=== PATIENT | female | born 1985 | race Caucasian/White ===

== ENCOUNTER → 2018-02-16 13:00 | Outpatient (CLI) | payer OTHER, SELFPAY ==
[2018-03-03 17:00] VITALS: BMI 25.7
== END ==
PROVIDERS: PCP Family Medicine
DX: Z23 Encounter for immunization (principal)
CPT/HCPCS: 90471; 90686

== ENCOUNTER 2018-03-03 13:27 | Day surgery (SDC) | payer OTHER, SELFPAY ==
[2018-03-02 08:02] VITALS: BMI 25.2
[2018-03-03] VITALS (10 sets, daily range): BP systolic 97–132; BP diastolic 48–80; PULSE 61–87; RESP 16–19; TEMP 36.2–36.9; O2SAT 96–99; BMI 25.7
--- NOTE | 2018-03-03 | PATH_ITS ---
[facility] Accession Number: [id number] . 01 Material submitted: . UTERUS AND RIGHT OVARY . 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 Multiple serous cysts (ovary). Multiple follicular cysts, ovary. Hemorrhagic corpus luteum, ovary. MRV/03/05/2018 . 02 Electronically signed: . Kris Rosario MD, Pathologist NPI- [id number] . 01 Gross description: . Received in formalin, labeled uterus and right ovary, is a fragmented uterus (40 grams, 6.2 x 5.0 x 3.5 cm in aggregate) and an ovary (4.8 x 2.8 x 1.5 cm). The second ovary, fallopian tubes and cervix are absent. The specimen cannot be oriented and the endometrium and myometrium cannot be grossly measured. The parenchyma is avitia and unremarkable. The serosa is pale avitia smooth and shiny. The ovary has a avitia-yellow dark maroon solid cystic parenchyma with corpus albicans and corpus luteum identified. The cavities (0.1 cm-1.3 cm) contain clear colorless fluid. Section code: (A1-A3) uterine parenchyma, technical sales representative; (A4-A5) ovary, technical sales representative serial sections. ([id number]) /[facility] . 02 Pathologist provided ICD-10: N93.9 . 02 CPT . 931074 Performed at: 01 [facility] [address] [id number] MD Omkar Hercules MD Phone: [phone] Performed at: 02 [facility] [address] [place] [id number] MD Tex Douglas MD Phone: [phone]
--- NOTE | 2018-03-03 13:57 | PM.PREOP ---
Pre-operative Note Interval Note Pre-op Check: Yes History & Physical exam performed today by Physician Changes: No
--- NOTE | 2018-03-03 14:00 | P.HPOB_ITS ---
History of Present Illness Reason for admission: vaginal bleeding Narrative: Mary Foster is a 32 year old female with menorrhagia and recurring right lower quadrant pain [facility] Medical History Chronic back pain (Acute) Environmental allergies (Acute) Fibroids (Acute) Hay fever (Acute) History of bronchitis (Acute) IBS (irritable bowel syndrome) (Acute) Ovarian cyst (Acute) Surgical History Hx of thumb surgery (Acute) Status post LASIK surgery Status post delivery Status post tubal ligation Family History Grandfather Heart disease Hypertension High cholesterol Grandfather Heart disease Hypertension High cholesterol Grandmother Mental health problem Social History household members: spouse and children Smoking Status: Never smoker alcohol intake: current Meds Home Medications Medication Instructions Recorded Confirmed Type eszopiclone [Lunesta] 1 mg PO HSP PRN #30 tab 01/24/17 03/03/18 Rx albuterol sulfate [Ventolin HFA] 2 puff INH Q4-6H #1 ea 06/02/17 03/03/18 Rx Allergies Allergy/AdvReac Type Severity Reaction Status Date / Time Penicillins [PENICILLINS] Allergy Severe Swelling Verified 03/03/18 13:43 of Lip/Tongue/Throat hydrocodone AdvReac Intermediate itching Verified 03/03/18 13:43 Review of Systems Review of Systems Patient has heavy bleeding. She is recurring right ovarian cysts and pain. All systems reviewed & are unremarkable except as noted in HPI and below Exam Narrative Exam Narrative: HEENT exam within normal limits. Lungs are clear to auscultation percussion. Heart is regular rate and rhythm no S3-S4 or murmurs. Abdomen is soft, nontender. Normal external genitalia, vagina, cervix. Uterus is minimally enlarged, nontender. No adnexal masses or tenderness. Extremities without edema and nontender. Assessment & Plan (1) Menorrhagia with regular cycle: Current visit: Yes Status: Acute (2) Ovarian cyst: Current visit: Yes Status: Acute Plan: Assessment/Plan Narrative: Patient with menorrhagia and recurring right ovarian cyst requesting laparoscopic supracervical hysterectomy with right oophorectomy. Consent form was reviewed with the patient, risks and benefits discussed, consent form was signed and a copy offered to the patient on 03/02/2018.
[2018-03-03] MEDS: LACTATED RINGERS 1,000 ML 42 ML IV (14:01)
[2018-03-03] MEDS: ALBUTEROL 2.5 MG/3 ML NEB (ADULT) INH (14:03)
[2018-03-03] MEDS: CLINDAMYCIN 900 MG/50 ML PIGGYBACK 50 MG IV (14:30)
--- NOTE | 2018-03-03 15:06 | SUR.OPER ---
Lithotomy on padded OR bed. [place]ooba Pad Positioner under torso. Head on pillow, arms padded and tucked at sides. Legs secured in padded yellow fins stirrups.
[2018-03-03] MEDS: BUPIVACAINE 0.5% W/ EPI (PF) VIAL 30 ML INJ (15:24)
--- NOTE | 2018-03-03 16:33 | P.OP_ITS ---
Operative Date/Time/Diagnoses Date of procedure: 03/03/18 Time of procedure: 16:30 Pre-op diagnosis: Menorrhagia with right lower quadrant pain and recurring ovarian cysts Post-op diagnosis: same Procedure & Clinicians Procedure: Laparoscopic supracervical hysterectomy, right oophorectomy Same procedure as scheduled: Yes Indications: Menorrhagia and recurring right ovarian cysts with pain Surgeon: Farzaneh Mcbride Curbstone Setter: Nicole Cruz Click Yes if Unassisted: No Anesthesia Type: General Operative Notes Findings: Uterus with a fibroid, status post removal of fallopian tubes, right ovarian cyst. No endometriosis. The scarring at her incision with the bladder. No internal hernias. Normal bowel surface and liver edge. Closure Type: primary Specimen(s): other (Uterus above the level of the bladder and right ovary) Applied: catheter Estimated Blood Loss (mL): 50 Blood products transfused: none Procedure in detail: Patient is brought to the operating room where she underwent general anesthesia and placed in [facility] stirps. She was prepped and draped in the usual sterile fashion. A check list was reviewed with the staff in the room prior to beginning of the case. Patient had pulsatile stockings in place and functional. 900 mg of clindamycin were in prior to beginning of the case.. A Shafer catheter was placed. A single-tooth tenaculum was placed on the anterior lip of the cervix and the cervix dilated to a #6 Hegar dilator. The uterine manipulator was placed through the cervix into the uterus with the balloon inflated with 3 mL of air. The area of the umbilical incision and the 5 mm right and left lower quadrant incisions were injected with Marcaine. An incision was made with scalpel. The verries needle was placed into the abdomen and confirmed in the appropriate place with withdrawal on a syringe and then free flow of fluid down through the needle. The abdomen was insufflated with CO2. The needle was removed and a 5 mm trocar placed without difficulty. There did not appear to be any damage is placement of the trocar. The right and left lower quadrant incisions were made with the scalpel and the trochars placed without damage to internal structures. The PK forceps were used to cauterize the infundibulopelvic ligament on the right side. Followed by the round ligaments on both sides. Sequential bites were taken down the broad ligaments. The uterine arteries were cauterized. An incision was made above the level bladder pushing the bladder away from the cervix. The WAGNER loop was placed around the uterus and the uterus was amputated above the level of the bladder. Bleeding was controlled with the PK forceps. The PK forceps were used to cauterize in the endocervical canal. A supracervical incision was made and an 11 mm port placed. A 15 mm Endo Catch bag was placed in the abdomen. The uterus, tubes and ovaries were placed in the bag and brought up through the suprapubic port site. The Efrain O was placed. The uterus was hand morselized. The abdomen was reinsufflated and adequate hemostasis was noted. The trochars were removed and the CO2 allowed escape from the abdomen. The fascia layer of the suprapubic site was repaired with 0 Polysorb suture. Skin was closed with 4-0 Monocryl suture at the suprapubic site and the other 3 sites. The patient went to recovery room in good condition. Counts of instruments and sponges were correct. Complications: none Condition: stable Disposition: Acute Care Plan for aftercare: Routine post hysterectomy
[2018-03-03] MEDS: OXYCODONE/ACETAMINOPHEN 5/325 TABLET 2 TAB PO ×2 (17:26→20:55)
[2018-03-03] MEDS: LACTATED RINGERS 1,000 ML 100 ML IV (18:27)
[2018-03-03] MEDS: KETOROLAC 30 MG/ML VIAL IV (18:28)
[2018-03-03] MEDS: DOCUSATE 250 MG CAPSULE PO (22:00)
--- NOTE | 2018-03-03 23:18 | PC.NURSE ---
1700- pt arived to room 219 from PACU via bed. A/O x3, 99%RA, LS clear, does use albuterol inhaler for Hx Bronchitis. 4 lap sites to ABD, steri strips, bandaids, CDI. Shafer patent and draining clear yellow urine. Tolerating reg diet. PP/BT/CMS++. L hand LR @ 100. Percocet 1 tab, and Ketorolac 30mg IVP effective for pain. Call light in reach and bed alarm on for safety.
[2018-03-04] MEDS: KETOROLAC 30 MG/ML VIAL IV ×2 (00:10→05:40)
[2018-03-04 00:34] VITALS: BP 91/51; PULSE 78; RESP 16; TEMP 36.2; O2SAT 96
[2018-03-04] MEDS: OXYCODONE/ACETAMINOPHEN 5/325 TABLET 2 TAB PO ×2 (01:22→08:54)
[2018-03-04] MEDS: LACTATED RINGERS 1,000 ML 100 ML IV (03:51)
[2018-03-04 06:29] LABS: Add Manual Diff / Slide Review NO; Hematocrit 38.4 % (36-46); Hemoglobin 13.1 g/dL (12.0-16.0); Lymphocytes Percent Auto 5.9 % (25-40); Mean Corpuscular HGB Conc 34.2 % (30-36); Mean Corpuscular Hemoglobin 31.6 PG (26-34); Mean Corpuscular Volume 92.4 fL (80-100); Neutrophils Absolute Auto 12300 /uL (3000-5900); Neutrophils Percent Auto 91.1 % (50-75); Platelet Count 183 X10^3/uL (150-400); Red Blood Cell Count 4.15 X10^6/uL (4.0-5.2); Red Cell Distribution Width 11.7 % (11.6-14.8); White Blood Cell Count 13.5 X10^3/uL (4.5-11.0)
[2018-03-04 06:45] VITALS: BP 116/51; PULSE 71; RESP 16; TEMP 36.9; O2SAT 97
--- NOTE | 2018-03-04 06:57 | PM.DS.1 ---
History of Present Illness Date Patient Seen: 03/04/18 Time Patient Seen: 06:57 Chief complaint: *OPB*[id number] lsch oophorectomy Narrative: Patient came in for laparoscopic supracervical hysterectomy right oophorectomy for menorrhagia, right lower quadrant pain, recurrent ovarian cysts Discharge Providers Primary care physician: Prudence Delgado DO Consults: 03/03/18 17:29 Consult to Respiratory Therapy Evaluate & Treat Comment: Physician Instructions: Evaluate and treat Discharge provider: Farzaneh Mcbride MD Discharge Date: 03/04/18 Summary Discharge Diagnosis: Menorrhagia and right lower quadrant pain with recurring ovarian cyst status post laparoscopic supracervical hysterectomy with right oophorectomy. Hospital Course: Patient was admitted for laparoscopic supracervical hysterectomy and right oophorectomy. Her surgery went very well. She was ambulatory. Urinating well. Pain was under control. She was discharged home to follow up in 3 weeks. Status at Discharge Functional status at discharge: independent ambulation Overall status at discharge: patient is progressing back to baseline Time Spent with Patient Less than 30 minutes Exam Vital Signs (past 8 hours): - 03/04/18 00:34 03/04/18 06:45 Temperature 97.2 F L 98.4 F Pulse Rate 78 71 Respiratory Rate 16 16 Blood Pressure 91/51 L 116/51 L Pulse Oximetry 96 97 Oxygen Delivery Method Room Air Narrative Exam Narrative: Abdomen was soft, appropriately tender. Incisions were clean, dry, intact. No vaginal bleeding. Extremities without edema and nontender. Objective Labs Result Diagrams: 03/04/18 05:40 Labs: Laboratory Results - last 24 hr 03/04/18 05:40 WBC 13.5 H RBC 4.15 Hgb 13.1 Hct 38.4 MCV 92.4 MCH 31.6 MCHC 34.2 RDW 11.7 Plt Count 183 Neut % (Auto) 91.1 H Lymph % (Auto) 5.9 L [place] % (Auto) 3.0 Eos % (Auto) 0.0 L Baso % (Auto) 0.0 Neut # (Auto) 80612 H Discharge Plan Discharge Plan Patient Disposition: Home Discharge Med Rec/Prescriptions Prescriptions: New oxycodone-acetaminophen 5-300 mg tablet 2 tab PO Q4-6H PRN (Reason: pain) Qty: 30 RF: 0 No Action eszopiclone [Lunesta] 1 MG tablet 1 mg PO HSP PRNQty: 30 RF: 0 albuterol sulfate [Ventolin HFA] 90 MCG/PUFF HFA aerosol inhaler 2 puff INH Q4-6H Qty: 1 RF: 1 Follow up/Referrals: Farzaneh Mcbride MD [Physician] - 03/27/18 12:00 am (Needs time can change day) Prudence Delgado DO [Primary Care Provider] - Discharge Orders: Discharge (Order); Ordered 03/04/18 Ordered By: Farzaneh Mcbride Provider Discharge Instructions Diet: Regular Skin/Wound/Dressing Care Report to your healthcare provider any signs of infection, such as:: chills, fever, increased pain and unusual drainage Dressing: May remove Band-Aids after 24 hr. Can get Steri-Strips wet just pat dry and then remove in 1 week Visit Report/Discharge Packet Stand Alone Forms: Surgery Discharge Discharge Data Primary Care Provider: Prudence Delgado Attending Provider: Farzaneh Mcbride Discharges patient from system. Discharge Date/Time: 03/04/18 10:45 Quality VTE Deep Vein Thrombosis/Pulmonary Embolism Present on Admission: No
[2018-03-04 07:40] VITALS: BP 118/76; PULSE 79; RESP 16; TEMP 36.9; O2SAT 94
[2018-03-04] MEDS: DOCUSATE 250 MG CAPSULE PO (08:58)
--- NOTE | 2018-03-04 15:34 | CM.IDA ---
Discharge Planning/Care Management CM Discharge Assessment Start: 03/04/18 15:32 Freq: Status: Active Protocol: Document 03/04/18 15:32 REYMUNDO (Rec: 03/04/18 15:34 REYMUNDO [id number]) Discharge Planning Assessment Assigned Residential Monitor CHAR Dang DPOA/Assigned Designee Name Conner Foster, spouse Contact Information [phone] Advance Directives? No History Provided By Patient Prior Living Arrangements House Household Members spouse children Type of transporation used prior to Drives own vehicle admit Comment Works at [employer] Independent with ADL's Yes Is patient alert and oriented? Yes Barriers to Discharge No Comment Met w/pt and her supportive spouse, very briefly. Pt appreciative of the visit and plans to take it easy for her recovery. Plan is home w/ supportive family today. Discharge Plan Home Transportation Arrangement Family Referrals Initiated None needed Whiteboard Updated in Patient Room with Yes name and ext. # of Residential Monitor
== END 2018-03-04 10:45 | disposition home or self-care (01) ==
LOC: OR 13:29 → AC 17:52
PROVIDERS: PCP Family Medicine; Visit Provider Specialist
PROC: 0UT94ZL Resection of Uterus, Supracervical, Percutaneous Endoscopic Approach (ICD-10-PCS; CPT 58542; principal; 2018-03-03 15:00)
DX: D25.0 Submucous leiomyoma of uterus (principal); N83.01 Follicular cyst of right ovary; N83.11 Corpus luteum cyst of right ovary; N83.201 Unspecified ovarian cyst, right side
CPT/HCPCS: 58542; 36415; 85025; J0330; J1100; J1885; J2250; J2405; J2704; J3010; J7613